=== PATIENT | female | born 1995 | race Caucasian/White ===

== ENCOUNTER 2019-08-30 12:59 | Emergency (ER) | payer SELFPAY ==
[~2019-08-30] VITALS: Ht 170.2 cm; Wt 86.0 kg
[2019-08-30 13:30] VITALS: BP 120/66
[2019-08-30] MEDS ORDERED: BACITRACIN ZINC OINT UDPKT TOP ONE (13:30)
[2019-08-30] MEDS ORDERED: TETANUS, DIPHTHERIA, PERTUSSIS VAC/PF 0.5ML (>7YR OLD) IM ONE (13:30)
[2019-08-30] MEDS ORDERED: IBUPROFEN 600MG TABLET PO ONE (13:30)
[2019-08-30] MEDS ORDERED: LIDOCAINE HCL/PF 1% 10 MG/ML 5ML VIAL IJ ONE (13:30)
[2019-08-30] MEDS ORDERED: LIDOCAINE HCL/EPINEPHRINE 1%-EPI 1:100,000 30 ML VIAL INFIL ONE (14:30)
[2019-08-30] MEDS ORDERED: CEPHALEXIN 250MG CAPSULE PO ONE (14:30)
[2019-08-30] MEDS ORDERED: LIDOCAINE HCL/EPINEPHRINE 1%-EPI 1:100,000 20 ML VIAL INFIL ONE (14:45)
== END 2019-08-30 17:29 | disposition home or self-care (01) ==
LOC: ER 12:59
DX: S71.112A Laceration without foreign body, left thigh, initial encounter (principal); W26.8XXA Contact with other sharp object(s), not elsewhere classified, initial encounter; Y93.89 Activity, other specified; Y92.89 Other specified places as the place of occurrence of the external cause; Y99.8 Other external cause status; F31.9 Bipolar disorder, unspecified; F20.9 Schizophrenia, unspecified
CPT/HCPCS: 12004; 90471; 90715; 99284; J3490